=== PATIENT | female | born 1980 | race Caucasian/White ===

== ENCOUNTER 2023-06-18 12:34 | Outpatient (CLI) | payer OTHER, SELFPAY | END 2023-06-18 12:35 | disposition home or self-care (01) | PROVIDERS: Visit Provider Registered Nurse | DX: Z01.419 Encounter for gynecological examination (general) (routine) without abnormal findings (principal); N92.0 Excessive and frequent menstruation with regular cycle; Z13.6 Encounter for screening for cardiovascular disorders; Z13.1 Encounter for screening for diabetes mellitus | CPT/HCPCS: 80061; 82947; 84443 ==

== ENCOUNTER 2023-07-02 12:45 | Outpatient (CLI) | payer OTHER, SELFPAY ==
--- NOTE | 2023-07-02 13:00 | CRLHL7_ITS ---
For Patients: As a result of the Century Cures Act, medical imaging exams and procedure reports are released immediately into your electronic medical record. You may view this report before your referring provider. If you have questions, please contact your health care provider. INDICATION: Heavy and frequent menstrual cycles. TECHNIQUE: Ultrasound pelvis transabdominal and transvaginal for better assessment or to better visualize the endometrium. Real-time sonographic images with spectral and color Doppler imaging of the ovaries were obtained. COMPARISON: None. FINDINGS: Uterus: 10 x 5 x 4 cm. Normal echotexture of the myometrium. No masses. Endometrium: Transvaginal imaging was performed to better evaluate the endometrium. Endometrial thickness measures 19 mm. No sign of endometrial mass or fluid. Right ovary 4 x 3 x 2 cm. Left ovary 3 x 2 x 2 cm. No ovarian or adnexal masses. Normal arterial and venous blood flow is demonstrated in both ovaries. Cul-de-sac: No significant free fluid. IMPRESSION: Thick endometrium measuring 19 mm may be normal depending on the current phase of the patient`s menstrual cycle. Exam is otherwise normal. Dictated by Evin Carias MD @ 07/03/2023 3:52:16 PM (Electronically Signed)
== END 2023-07-02 12:46 | disposition home or self-care (01) ==
LOC: US 12:48
PROVIDERS: Visit Provider Registered Nurse
DX: N92.0 Excessive and frequent menstruation with regular cycle (principal); R93.89 Abnormal findings on diagnostic imaging of other specified body structures
CPT/HCPCS: 76830; 76856

== ENCOUNTER 2023-09-10 05:57 | Day surgery (SDC) | payer OTHER, SELFPAY ==
--- OUTSIDE RECORDS SUMMARY | 2023-09-10 06:01 | XMS_ITS | Clinical Summary ---
Author Name Unknown Organization [facility] Address [place], [place] [address] Care Team Providers Care Television Program Director Name Role Phone Pcp, No Primary Care Provider Unavailabl e Allergies Active Allergy Reactions Criticality Noted Date Comments Cefaclor Vomiting 03/13/2021 Penicillin V Potassium *Unknown - Childhood Rxn 03/13/2021 Sulfa (Sulfonamide Antibiotics) Vomiting 03/13/2021 Medications Medication Sig Dispensed Refills Start Date End Date Status fluticasone (50 mcg per actuation) nasal solution (FLONASE) Inhale 2 Sprays to both nostrils once daily. 16 g 0 03/13/2021 Active sertraline (ZOLOFT) 100 mg tabletIndications:Po st depression Take 1 Tablet (100 mg) by mouth every morning. 90 Tablet 3 04/13/2021 Active Active Problems No known active problems Encounters Date Type Department Care Team Description 08/06/2023 Lab Requisition [facility] [phone] Unknown, Doctor 06/19/2023 Lab Requisition [facility] [phone] Josephine Santizo, ADRIAN from Last 3 Months Immunizations Name Administration Dates Next Due Tdap 01/19/2020,12/22/2013 Social History Tobacco Use Types Packs/Day Years Used Date Smoking Tobacco: Former Cigarettes 0.5 20 0 03/13/2006 - 03/13/2011 Smokeless Tobacco: Never Tobacco Cessation:Counseling Given: Yes Alcohol Use Standard Drinks/Week Comments Yes 2 (1 standard drink = 0.6 oz pur e alcohol) PHQ-2 Answer Date Recorded PHQ-2 TOTAL SCORE 2 05/02/2021 Social Connections Answer Date Recorded Frequency of Communication with Friends and Fami ly Not on file 08/05/2021 Financial Resource Strain Answer Date R ecorded Difficulty of Paying Living Expenses Not on file 08/05/2021 Difficulty of Paying Living Expenses Not on file 08/05/2021 Sex and Gender Information Value Date Recorded Sex Assigned at Not on file Gender Identity Not on file Sexual Orientation Not on file Obstetrics History Last Filed Vital Signs Vital Sign Reading Time Taken Comments Blood Pressure 128/86 04/13/2021 8:03 AM CDT Pulse 65 04/13/2021 8:03 AM CDT Temperature - - Respiratory Rate - - Oxygen Saturation 100% 04/13/2021 8:03 AM CDT Inhaled Oxygen Concentration - - Weight 87 kg (191 lb 12.8 oz) 04/13/2021 8:03 AM CDT Height 171.1 cm (5' 7.36) 03/13/2021 9:08 AM CD T Body Mass Index 29.72 03/13/2021 9:08 AM CDT Plan of Treatment Health Maintenance Due Date Last Done Comments COVID-19 vaccine series (#1) 1980 HIV for age 15-65 1995 Hepatitis C screening for ag e 18-79 1998 BMI (ht and wt on same day) for age 18+ 03/13/2022 03/13/2021 Depression screening for age 12+ 05/02/2022 05/02/2021, 04/13/2021, 03/13/2021 Influenza for age 9-49 04/05/2023 Pap test for age 21-65 06/18/2026 , 06/18/2023 Tetanus booster 01/18/2030 01/19/2020, 12/22/2013 Tdap Completed 01/19/2020, 12/22/2013 Pneumococcal series for age 6-64 Aged Out No longer eligible b ased on patient's age to complete this topic Procedures Procedure Name Priority Date/Time Associated Diagnosis Comments LAB TRACKING EVENT Routine 08/02/2023 3: 35 PM FORTUNE COOKIE MAKER PATH TISSUE EXAM Routine 08/02/2023 3:35 PM [employer] MAKER LAB TRACKING EVENT Routine 06/18/2023 12 :30 PM [employer]E COOKIE MAKER SOFTWARE SALES MANAGER THIN PREP PAP SCREEN IMAGED Routine 06/18/2023 12:00 PM [employer] MAKER HPV THIN PREP Routine 06/18/2023 12:00 PM FORT[employer]E COOKIE MAKER from Last 3 Months Results * LAB TRACKING EVENT (08/02/2023 3:35 PM FORTUNE COOKIE MAKER) Only the most recent of2 resultswithin the time period is included. Other (Other) Client Collect / Unknown 08/02/2023 3:35 PM [employer]E COOKIE MAKER 08/06/2023 3:46 PM [employer]TUNE COOKIE MAKER Doctor Unknown LAB BILL ONLY [facility] [address] [place] [address], * PATH TISSUE EXAM (08/02/2023 3:35 PM FORTUNE COOKIE MAKER) Case Report Pathology Report ?Case: [id number] ? Authorizing Provider: ??Unknown, Doctor ?Collected: ? 08/02/2023 1535 ? Ordering Location: ? [facility] ?Received: ?08/06/2023 1604 ? Pathologist: ? Janet Vasquez MD ? Specimen: ?Endometrial Biopsy ? 08/07/2023 3:58 PM FORTUNE COOKIE MAKER [facility] Final Diagnosis A) ENDOMETRIUM, BIOPSY: 1. Menstrual endometrium 2. Negative for chronic endometritis 3. Negative for hyperplasia, atypia, and malignancy 08/07/2023 3:58 PM FORTUNE COOKIE MAKER [facility] Clinical Information Abnormal uterine bleeding patient interested in ablation or hysterectomy. LMP 08/01/2023 08/07/2023 3:58 PM FORTUNE COOKIE MAKER [facility] Gross Description A) Received in formalin, labeled with the patient's name and date of , is a 2.7 x 2.0 x 0.3 cm aggregate of pink-ames mucosa admixed with clotted blood and mucous. The specimen is entirely submitted in 1 cassette. TLF 08/06/2023 08/07/2023 3:58 PM FORTUNE COOKIE MAKER [facility] Microscopic Description The final diagnosis is based on microscopic examination of appropriate sections of all specimens. 08/07/2023 3:58 PM FORTUNE COOKIE MAKER [facility] Additional Information Interpreted at [facility] Laboratory - [address] [facility] [address], [place] [address] 08/07/2023 3:58 PM FORTUNE COOKIE MAKER [facility] Other (Endometrial Biopsy) 08/02/2023 3:35 PM FORT[employer]E COOKIE MAKER 08/06/2023 4:04 PM FORTUNE COOKIE MAKER Doctor Unknown PATHOLOGY/CYTOLOGY [facility] [address] [place] [address], * SOFTWARE SALES MANAGER THIN PREP PAP SCREEN IMAGED (06/18/2023 12:00 PM FORT[employer]E [employer]OOKIE MAKER) Case Report Gynecologic Cytology Report ? Case: [id number] ? Authorizing Provider: ??Josephine Santizo N, B[employer]IAL [employer] MAKER ?? Collected: ? 06/18/2023 1200 ? Ordering Location: ? [facility] ?Received: ?06/19/2023 1721 ? First Screen: ?Jhony, Rogelio A ? Rescreen: ?Luis, Magnolia ? Pathologist: ? Chano-Saeedo, Taylor ? Cherise, MD ? Specimen: ?SOFTWARE SALES MANAGER ThinPrep Vial Screening, Cervical ? 07/03/2023 2:52 PM FORTUNE COOKIE MAKER [facility] INTERPRETATION/ RESULT NEGATIVE FOR INTRAEPITHELIAL LESION OR MALIGNANCY (NIL) (none) 07/03/2023 2:52 PM FORTUNE COOKIE MAKER [facility] R NON-NEOPLASTIC FINDING(S) Reactive cellular changes associated with inflammation/repa ir 07/03/2023 2:52 PM FORTUNE COOKIE MAKER [facility] SPECIMEN ADEQUACY Satisfactory for evaluation Endocervical component present 07/03/2023 2:52 PM FORTUNE [employer]OOKIE MAKER [facility] HPV REQUEST HPV and PAP 07/03/2023 2:52 PM FORTUNE COOKIE MAKER [facility] Last Pap Date 07/03/2023 2:52 PM FORTUNE COOKIE MAKER [facility] Comment:07/2019 Last Pap Result NIL 2:52 PM FORT[employer]E COOKIE MAKER [facility] Abnormal Pap or Ridgely Bx in last 5 years No 07/03/2023 2:52 PM FORTUNE COOKIE MAKER [facility] Ridgely Bx Done Today No 07/03/2023 2:52 PM FORTUNE COOKIE MAKER [facility] Additional Information 07/03/2023 2:52 PM FORTUNE COOKIE MAKER [facility] Comment: Interpreted at [facility] - [address], [place] [address] Automated Review Successful 07/03/2023 2:52 PM [facility] Comment:Specimen processed s uccessfully by automated armed custom protection officer device, ThinPrep Imaging System, [employer] ANCILLARY TESTING SOFTWARE SALES MANAGER HPV Ordered, Please see separate report 07/03/2023 2:52 PM FORTUNE COOKIE MAKER [facility] Note The pap test is a screening technique, not a diagnostic procedure. It is used primarily to screen for squamous cancers and precursor lesions. Published studies have shown that it is subject to both false negative and false positive results. The pap test should not be used as the sole means to diagnose or exclude pre-malignant and malignant lesions. 07/03/2023 2:52 PM FORTUNE COOKIE MAKER [facility] Other (Cervical) 06/18/2023 12:00 PM FORT[employer]E COOKIE MAKER 06/19/2023 5:21 PM FORTUNE COOKIE MAKER Josephine Santizo NP PATHOLOGY/CYTOLOG Y Performing Organization Address [facility] Co de Phone Number [facility] [address] [place] [phone], * HPV HIGH RISK (06/18/2023 12:00 PM FORTUNE COOKIE MAKER) TYPE 16 Negative Negative 06/22/2023 1:14 PM FORTUNE COOKIE MAKER [facility] TYPE 18 Negative Negative 06/22/2023 1:14 PM FORTUNE COOKIE MAKER [facility] OTHER HIGH RISK TYPES Negative Negative 06/22/2023 1:14 PM FORTUNE COOKIE MAKER [facility] Other (Cervical) 06/18/2023 12:00 PM FORTUNE COOKIE MAKER 06/19/2023 5:21 PM FORTUNE COOKIE MAKER Narrative [facility] - 06/22/2023 1:14 PM FORTUNE COOKIE MAKER HPV types 16, 18, 31, 33, 35, 39, 45, 51, 52, 56, 58, 59, 66 and 68 DNA were undetectable or below the pre-set threshold. Methodology: Kenzie Mellisa 4800 HPV Test Josephine Santizo NP MICROBIOLOGY Performing Organization Address [facility] de Phone Number [facility] [address] [place] [address], from Last 3 Months Care Teams Television Program Director Relationship Specialty Start Date End Date Pcp, No . PCP - General 03/13/21
[2023-09-10 06:19] VITALS: BMI 30.2
[2023-09-10 06:31] VITALS: BP 120/85; PULSE 80; RESP 16; TEMP 37.2; O2SAT 96
[2023-09-10 06:44] LABS: Ur HCG Qualitative* Negative (Negative)
[2023-09-10] MEDS: SODIUM CHLORIDE 0.9 % (FLUSH) 10 ML SYRINGE IVF (06:51)
[2023-09-10] MEDS: LACTATED RINGERS 1000 ML 1,000 ML 100 ML IV (06:51)
[2023-09-10 07:04] LABS: Hemoglobin* 12.3 gm/dL (12.0-16.0)
--- NOTE | 2023-09-10 07:19 | PM.GYNHPPRM ---
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) ?Z86.19 - Personal history of other infectious and parasitic diseases (ICD-10) History of abnormal cervical Papanicolaou smear (2004) ?Z87.42 - Personal history of other diseases of the female genital tract (ICD-10) Surgical History History of placement of ear tubes ?Z96.22 - Myringotomy tube(s) status (ICD-10) Family History Mother Thyroid disease High blood pressure High cholesterol Grandmother Ovarian cancer Breast cancer Grandfather FH: mental illness Social History Narrative: tobacco use history of substance abuse Smoking Status: Never smoker How often do you have a drink containing alcohol: 2-4 times a month How many standard drinks containing alcohol do you have on a typical day: 1 or 2 How often do you have six or more drinks on one occasion: Never AUDIT-C Alcohol total score: 2 Non-prescribed substance use: denies use Little interest or pleasure in doing things: not at all Feeling down, depressed, or hopeless: not at all Are you using contraception or practicing any form of control: No Meds Home Medications and Allergies Home Medications Medication Instructions Recorded Confirmed Type No Known Home Medications 06/18/23 09/10/23 History Allergies Allergy/AdvReac Type Severity Reaction Status Date / Time cefaclor [From Ceclor] Allergy Mild Hives Verified 09/10/23 06:19 Cephalosporins Allergy Mild Verified 09/10/23 06:19 Penicillins Allergy Mild Hives Verified 09/10/23 06:19 Sulfa (Sulfonamide Allergy Mild Verified 09/10/23 06:19 Antibiotics) CHIEF PASSENGER SHIP STEWARD/STEWARDESS - Exam Physical Exam: Vital signs: Temp Pulse Resp BP Pulse Ox O2 Del Method 99 F 80 16 120/85 96 Room Air 09/10/23 06:31 09/10/23 06:31 09/10/23 06:31 09/10/23 06:31 09/10/23 06:31 09/10/23 06:31 CHIEF PASSENGER SHIP STEWARD/STEWARDESS - Results Labs Labs: Short CBC 09/10/23 Range/Units 06:48 Hgb 12.3 (12.0-16.0) gm/dL
[2023-09-10] MEDS: BUPIVACAINE 0.5% 30 ML INJECTION (07:43)
--- NOTE | 2023-09-10 07:57 | W.PM.GYNPROC ---
Procedure Note Time Seen by Provider: 07:57 Date of procedure: 09/10/23 Pre-op diagnosis: Abnormal uterine bleeding Post-op diagnosis: same Procedure: Hysteroscopy, dilation and curettage with TruClear, Mary endometrial ablation Anesthesia: MAC and local Complications: None Surgeon: Belkis Everett MD Estimated blood loss (mL): 5 IV fluids (mL): 700 Urine Output (mL): 50 Pathology: specimen obtained, sent to pathology Condition: stable Disposition: same day Findings: Proliferative and polypoid appearing endometrium Unremarkable bilateral tubal ostia Procedure Description: PROCEDURE: After obtaining informed consent, the patient was taken to the operating room where she received monitored anesthesia care. She was prepared and draped in the normal sterile fashion, in the dorsal lithotomy position. In and out catheterization performed, for 50 mL. An open-sided bivalve speculum was introduced into the vagina and the cervix visualized. The anterior lip of the cervix was grasped with a single-tooth tenaculum for traction. A paracervical block was then administered using a total of 10 mL of 0.5% Marcaine. The uterus was gently sounded. Sound length was 9 cm. The cervix length was determined to be 5 cm using Hegar dilators, yielding a uterine cavity length of 5 cm. The cervix was gently dilated to a # 8 Hegar dilator. A hysteroscope was then advanced under direct visualization through the cervix into the uterine cavity. Sterile normal saline was used as distending medium. The uterine cavity was carefully inspected with the findings noted above. Soft tissue morcellator was introduced, where global endometrial curetting was performed. The hysteroscope was then removed. The Mary device was then set to a cavity length of 5 cm, inserted through the cervical os into the uterine cavity to the level of the fundus, and deployed. The device was sealed against the cervix. The safety checks were then passed x2 and the 2-minute treatment cycle initiated. Following completion of the treatment cycle, the Mary device was removed. The hysteroscope was advanced again into the uterine cavity and the uterine cavity inspected. An excellent ablation was noted from the internal os to fundus and to the cornua bilaterally. Pictures were taken for documentation purposes. The hysteroscope was removed. The tenaculum was removed. There was little bleeding from the tenaculum site, which was controlled with direct pressure sponge stick and silver nitrate. All instruments were then removed. The patient tolerated the procedure well. Sponge, lap, needle, and instrument counts reported as correct x2. The patient was taken to the recovery room awake in a stable condition. Surgical debriefing was completed. Procedures as listed. EBL 5 mL. Fluid deficit of 280 mL. Urine output 50 mL. IV fluids 700 mL. Specimen is endometrial curettings, sent to pathology.
[2023-09-10 08:05] VITALS: BP 95/59; PULSE 84; RESP 16; TEMP 36.6; O2SAT 100
--- NOTE | 2023-09-10 08:11 | W.ANESCHARGE ---
Anesthesia Charges Start Date/Time Anesthesia Start Date: 09/10/23 Anesthesia Start Time: 07:17 Stop Date/Time Anesthesia Stop Date: 09/10/23 Anesthesia Stop Time: 08:07
[2023-09-10 08:15] VITALS: BP 117/78; PULSE 78; RESP 16; O2SAT 100
[2023-09-10 08:30] VITALS: BP 119/87; PULSE 69; RESP 16; O2SAT 99
[2023-09-10 08:45] VITALS: BP 123/89; PULSE 66; RESP 16; O2SAT 99
[2023-09-10 09:00] VITALS: BP 115/91; PULSE 67; RESP 16; O2SAT 99
--- NOTE | 2023-09-10 10:36 | W.PM.H&PU ---
History & Physical Update History & Physical Update H&P Reviewed and patient assessed: No changes noted H&P Updates: Delayed documentation due to patient care. Patient seen at 0700 on 09/10. Ms. Mcclelland is a a 43yo seen in pre-op prior to hysteroscopy, D&C and endometrial ablation for AUB. She is s/p H&P for pre-op clearance by Dr. Holder on 08/20. Patient is feeling well, no acute concerns or changes to her health history. She is s/p benign EMB and negative UPT today. We discussed the procedure in depth including the goal to reduce her menstrual volume, rather than completely eliminate it. We discussed risks of surgery including postprocedural discomfort/pain, abnormal vaginal bleeding or discharge for up to 6 months, infection and perforation. We reviewed bleeding efficacy data provided by Mary pamphlet. We reviewed the risks of unintended after an endometrial ablation were explicitly explained that this is not a form of prevention. She has reliable contraception in terms of a partner vasectomy. After this discussion, written consent for hysteroscopy, dilation curettage and endometrial ablation was re-signed. We discussed postoperative restrictions and expectations - where I explained she could go back to work within 48 hours of procedure if she feels up to it, pelvic rest x2 weeks and no lifting restrictions. Physical exam: General: No acute distress Psych: Alert and oriented x3, full affect Heart: Regular rate and rhythm, no murmur rub or gallop Lungs: Clear to auscultation bilaterally Plan to proceed with the above surgery. No perioperative antibiotics.
== END 2023-09-10 09:33 | disposition home or self-care (01) ==
PROVIDERS: PCP Family Medicine; Visit Provider Obstetrics & Gynecology
PROC: 0UF98ZZ Fragmentation in Uterus, Via Natural or Artificial Opening Endoscopic (ICD-10-PCS; CPT 58563; principal; 2023-09-10 07:15)
DX: N93.8 Other specified abnormal uterine and vaginal bleeding (principal); N84.0 Polyp of corpus uteri
CPT/HCPCS: 58563; 00952; 36415; 81025; 85018; 88305; J0665; J1100; J1885; J2250; J2405; J2704; J3010; J3490; J7120

== ENCOUNTER 2023-11-07 14:21 | Outpatient (CLI) | payer OTHER, SELFPAY ==
--- NOTE | 2023-11-07 14:40 | MM_ITS ---
Patient: JULIA MARTIN Facility:?[facility] Patient ID:?[id number] Site Patient ID:?[id number]. Site :?[id number] Study:?XRay-Breast Bilateral 3D W/CAD-11/07/2023 3:13:33 PM Ordering Physician:Rylie Final Report: BILATERAL SCREENING MAMMOGRAM WITH COMPUTER-AIDED DETECTION AND TOMOSYNTHESIS TECHNIQUE: CC and MLO views were obtained. These mammographic images have been obtained using full-field digital technique. These mammographic images were interpreted with the benefit of computer-aided detection. Breast Tomosynthesis was used in this interpretation. COMPARISON FILM: Baseline. FINDINGS: The breasts are heterogeneously dense, which may obscure small masses. IMPRESSION: There is no radiographic evidence for malignancy. ASSESSMENT: BI-RADS Category 1: Negative RECOMMENDATION: Routine screening mammogram in 1 year. A lay language report of this examination will be provided to the patient. Artemio Avitia M.D. Diagnostic Radiologist [email or web address] SONYA/sp R& Transcribed: 1:06 p.m. SP/Dictated by: Artemio Avitia MD @ 11/08/2023 9:10:00 AM Signed by:?Artemio Avitia MD @11/08/2023 1:10:46 PM (Electronic Signature)
== END 2023-11-07 14:22 | disposition home or self-care (01) ==
LOC: MAMMO 14:22
PROVIDERS: PCP Family Medicine; Visit Provider Family Medicine
DX: Z12.31 Encounter for screening mammogram for malignant neoplasm of breast (principal); R92.2 Inconclusive mammogram; Z80.3 Family history of malignant neoplasm of breast
CPT/HCPCS: 77063; 77067